=== PATIENT | male | born 1985 | race Caucasian/White ===

== ENCOUNTER 2024-01-10 10:58 | Emergency (ER) | payer OTHER ==
[~2024-01-10] VITALS: Ht 175.3 cm; Wt 103.0 kg
[2024-01-10 11:02] VITALS: O2SAT 97
[2024-01-10] MEDS: KETOROLAC 30MG/ML VIAL IM ONE (13:42)
[2024-01-10 13:49] VITALS: BP 154/98; PULSE 78; RESP 12; TEMP 36.78072
== END 2024-01-10 13:52 | disposition home or self-care (01) ==
LOC: ER 10:58
DX: M54.41 Lumbago with sciatica, right side (principal)
CPT/HCPCS: 99283; 96372; J1885